=== PATIENT | male | born 1960 | race Caucasian/White ===

== ENCOUNTER → 2021-12-28 | Outpatient (CLI) | payer OTHER ==
--- NOTE | 2021-12-28 13:12 | RAD ---
Three-view right elbow dated 12/28/2021. COMPARISON: None. CLINICAL INDICATION: Swelling and pain. FINDINGS: 3 views the right elbow show mild to moderate degenerative change of the elbow joint. There is bony f ragmentation near the medial and lateral epicondyles with possible small bone fragments at the anteri or joint space. No definite fat pad elevation. There is a prominent olecranon spur. No periostitis or bone destruction. No acute appearing fracture. IMPRESSION: 1. No apparent acute bony abnormality. 2. 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 This c ould be related to loose bodies and/or enthesopathic change or prior avulsion injury. 3. Mild soft tissue swelling. Electronically signed by: Bakari Smith MD (12/28/2021 1:09 PM) [id number]
== END ==
LOC: RAD 11:53
PROVIDERS: ATTEND Nurse Practitioner Family
DX: M19.021 Primary osteoarthritis, right elbow (principal); M79.89 Other specified soft tissue disorders; M25.421 Effusion, right elbow; M25.821 Other specified joint disorders, right elbow
CPT/HCPCS: 73080